=== PATIENT | male | born 1935 | race Caucasian/White ===

== ENCOUNTER 2019-11-10 12:22 | Emergency (ER) | payer MEDICARE, OTHER, SELFPAY ==
[2019-11-10 12:25] VITALS: BP 179/71; PULSE 73; RESP 18; TEMP 36.7; O2SAT 98; BMI 19.3
--- NOTE | 2019-11-10 12:25 | ED_ITS ---
Entered by Hollie Tolbert, acting as scribe for HPI - Chest Pain General: Chief Complaint: Chest Pain Stated Complaint: cp Time Seen by Provider: 11/10/19 12:32 Source: patient and family Mode of arrival: ambulatory Limitations: no limitations History of Present Illness: HPI narrative: 84 yo male presents with chest pain. pt states this started last night. pt states while and after eating this was worsened. pt states he has had the same pains in the pt. pain is resloved in the ED. pt denies any other symptoms at this time. MD complaint: chest pain Onset (ago): day(s) (last night) Timing of current episode: daily and now resolved Prior episodes: Yes Onset: during exertion and after eating Pain radiation: none Severity: mild Quality: heaviness Relieving factors: nothing Exacerbating factors: exertion and eating Associated symptoms: Reports no associated symptoms; Deny abdominal pain, dyspnea, fever(s), nausea, palpitations, syncope or vomiting Treatment prior to arrival: none Review of Systems Const: Denies: fever, chills, body aches, fatigue, malaise or night sweats Eyes: Denies: change in vision or blurry vision ENMT: Denies: throat pain, oral sores/lesions, dental pain, nasal discharge or nasal congestion Card: Denies: palpitations, irregular heart rhythm, edema, syncope, shortness of breath on exertion, shortness of breath when lying down or leg pain with exertion Resp: Denies: shortness of breath, productive cough, non-productive cough or wheezing GI: Denies: abdominal pain, nausea, vomiting, vomiting blood, coffee grounds in vomit, difficulty swallowing, heartburn/indigestion, diarrhea, constipation, cramping, blood in stool or black tarry stool : Denies: flank pain, difficulty urinating, painful urination, urinary frequency, urinary urgency, urinary incontinence or blood in urine Musc: Denies: neck pain, back pain, extremity pain, extremity swelling, joint pain or joint swelling Skin/Breast: Denies: rash, itching or redness Neuro: Denies: headache, numbness in extremities, weakness in extremities, changes in sensation, lack of coordination, difficulty walking, frequent falls, dizziness, vertigo or confusion Psych: Denies: anxiety, depression, loss of interest, visual hallucinations, auditory hallucinations, suicidal ideation or homicidal ideation Endo: Denies: excessive urination, excessive thirst, tired all the time or cold intolerance Kalin/Lymph: Denies: easy bruising, easy bleeding, petechiae, enlarged lymph nodes or tender lymph nodes PFSH ED PFSH: Statuses (acute, chronic, etc) shown below reflect problem list status as previously entered and may not be historically accurate Social History Smoking and tobacco status: never smoked Physical Exam Const: COMMON NORMALS: average body habitus, oriented x3 and alert GENERAL APPEARANCE: cooperative, comfortable, well kempt and well developed NUTRITIONAL APPEARANCE: obese ORIENTATION/CONSCIOUSNESS: Yes awake, Yes oriented to person and Yes oriented to place HENMT: COMMON NORMALS: normocephalic, head/scalp atraumatic, EAC's normal, TM's normal bilaterally, external nose normal, moist oral mucous membranes and oropharynx normal HEAD & SCALP: normocephalic and atraumatic NOSE: external nose normal EXTERNAL AUDITORY CANAL: EAC's normal TYMPANIC MEMBRANE: TM's normal bilaterally MOUTH: oral and palatal mucosa normal, lip normal and tongue normal THROAT: posterior oropharynx normal and tonsils normal Eye: COMMON NORMALS: PERRL, EOMs intact bilaterally, conjunctivae normal and no scleral icterus CONJUNCTIVA: Yes conjunctivae normal PUPIL: Yes PERRL Neck/C-Spine: COMMON NORMALS: full ROM, no lymphadenopathy, supple, no meningeal signs and thyroid normal THYROID: thyroid normal and asymmetrical Lymph: LYMPHATIC: no lymphadenopathy noted Resp: COMMON NORMALS: normal respiratory effort, no retractions, no use of accessory muscles and clear to auscultation bilaterally AUSCULTATION: clear to auscultation bilaterally Cardio: COMMON NORMALS: regular rate and regular rhythm RATE: regular rate RHYTHM: regular rhythm HEART SOUNDS: no murmurs GI: COMMON NORMALS: normal to inspection, nondistended, normoactive bowel sounds, soft to palpation and no hepatosplenomegaly PALPATION: Yes soft and Yes no hepatosplenomegaly : COMMON NORMALS: Yes no CVA tenderness BLADDER/KIDNEY EXAM: Yes no CVA tenderness Back/Pelvis: COMMON NORMALS: no CVA tenderness LUMBAR SPINE/LOWER BACK: Yes normal to inspection Extremity: COMMON NORMALS: no clubbing, cyanosis or edema, no calf tenderness and no pedal edema Neuro: COMMON NORMALS: oriented x3 SENSORIUM/ORIENTATION: Yes alert, Yes oriented to person and Yes oriented to place MENINGEAL SIGNS: Yes no meningeal signs Psych: APPEARANCE: Yes well kempt Skin: COMMON NORMALS: no rashes or lesions noted and skin turgor normal GENERAL SKIN EXAM: no rashes or lesions noted and turgor normal Course ED course: Patient asymptomatic he like to go home. He is a heart score of 2. Discharge home with sublingual nitro set him up for an outpatient stress test if worsens return. Vital Signs: Vital signs: Vital Signs Temperature 98.1 F 11/10/19 12:25 Pulse Rate 61 11/10/19 16:00 Respiratory Rate 17 11/10/19 16:00 Blood Pressure 131/74 11/10/19 16:00 Pulse Oximetry 94 11/10/19 16:00 MDM - Chest Pain Lab Data: Labs: Lab Results 11/10/19 11/10/19 11/10/19 Range/Units 12:36 12:36 12:36 WBC 6.6 (4.0-10.0) 10^3/ uL RBC 4.29 (4.1-5.3) 10^6/u L Hgb 13.0 (11.7-16.6) g/dL Hct 40.0 L (42.0-52.0) % MCV 93.2 (80-94) fL MCH 30.3 (28.0-34.0) pg MCHC 32.5 (30.0-36.0) g/dL RDW 12.3 (12.1-15.1) % Plt Count 240 (130-400) 10^3/c mm MPV 10.5 H (7.4-10.4) fL Neut % (Auto) 62.2 % Lymph % (Auto) 26.2 % Maury % (Auto) 6.1 % Eos % (Auto) 4.7 % Baso % (Auto) 0.6 % Neut # (Auto) 4.1 (1.8-7.7) 10^3/u L Lymph # (Auto) 1.7 (0.8-4.8) 10^3/u L Maury # (Auto) 0.4 (0.2-0.9) 10^3/u L Eos # (Auto) 0.3 (0.0-0.8) 10^3/u L Baso # (Auto) 0.0 (0.0-0.1) 10^3/u L Nucleated RBC % (a uto) 0 % Nucleated RBCs # 0.0 /100WBC PT 13.10 (10.5-13.3) SECO NDS INR 0.96 (0.8-1.2) APTT 30.7 (23.9-36.7) SECO NDS D-Dimer <= 0.27 (0-0.59) ug/mIFE U Sodium 137 (136-145) mmol/L Potassium 4.2 (3.5-5.1) mmol/L Chloride 101 (98-107) mmol/L Carbon Dioxide 25 (22-29) mmol/L Anion Gap 15.2 (5-19) BUN 22 (8-23) mg/dL Creatinine 1.2 (0.7-1.2) mg/dL Glucose 245 H (74-106) mg/dL Calcium 9.5 (8.8-10.2) mg/Dl Total Bilirubin 0.3 (0.15-1.2) mg/dL AST 27 (0-40) U/L ALT 28 (0-41) U/L Alkaline Phosphata se 108 (40-130) IU/L Troponin T Baselin e (0-15) ng/mL Troponin T 120 Min shinnecock (0-15) ng/mL Delta Troponin T (0-10) ABS# Total Protein 6.9 (6.6-8.7) g/dL Albumin 4.3 (3.5-5.2) g/dL Globulin 2.6 (1.3-4.6) g/dL 11/10/19 11/10/19 Range/Units 12:36 14:50 WBC (4.0-10.0) 10^3/ uL RBC (4.1-5.3) 10^6/u L Hgb (11.7-16.6) g/dL Hct (42.0-52.0) % MCV (80-94) fL MCH (28.0-34.0) pg MCHC (30.0-36.0) g/dL RDW (12.1-15.1) % Plt Count (130-400) 10^3/c mm MPV (7.4-10.4) fL Neut % (Auto) % Lymph % (Auto) % Maury % (Auto) % Eos % (Auto) % Baso % (Auto) % Neut # (Auto) (1.8-7.7) 10^3/u L Lymph # (Auto) (0.8-4.8) 10^3/u L Maury # (Auto) (0.2-0.9) 10^3/u L Eos # (Auto) (0.0-0.8) 10^3/u L Baso # (Auto) (0.0-0.1) 10^3/u L Nucleated RBC % (a uto) % Nucleated RBCs # /100WBC PT (10.5-13.3) SECO NDS INR (0.8-1.2) APTT (23.9-36.7) SECO NDS D-Dimer (0-0.59) ug/mIFE U Sodium (136-145) mmol/L Potassium (3.5-5.1) mmol/L Chloride (98-107) mmol/L Carbon Dioxide (22-29) mmol/L Anion Gap (5-19) BUN (8-23) mg/dL Creatinine (0.7-1.2) mg/dL Glucose (74-106) mg/dL Calcium (8.8-10.2) mg/Dl Total Bilirubin (0.15-1.2) mg/dL AST (0-40) U/L ALT (0-41) U/L Alkaline Phosphata se (40-130) IU/L Troponin T Baselin e 17 H (0-15) ng/mL Troponin T 120 Min shinnecock 15.59 H (0-15) ng/mL Delta Troponin T -1.41 L (0-10) ABS# Total Protein (6.6-8.7) g/dL Albumin (3.5-5.2) g/dL Globulin (1.3-4.6) g/dL Imaging Data^: CXR: Radiologist's impression: [address] [address] XRay Report Signed Patient: Omar Ritter Taco #: [id number] : 1935Acct#:[id number] Age/Sex: 84 / MADM Date: 11/10/19 Loc: ERRoom/Bed: Attending Dr: Ordering Provider/Ordering MD: Miles Spear DO Date of Service: 11/10/19 Procedure(s): XR chest 1V portable [id number] Accession Number(s): [id number] Report Number: [id number] WS: [id number] Portable AP upright chest, 11/10/2019 Clinical Data: chest pain Comparison: PA and lateral chest, 12/13/2014 Findings: No nodules, masses or effusions are seen. The heart is normal. The pulmonary vascularity is not increased. No pneumonia or pneumothorax is seen. The aortic arch and descending aorta are minimally tortuous Surgical clips in the upper abdomen. Monitor leads are on the right upper abdomen and left chest. XR/XR chest 1V portable [id number] Impression: Atherosclerosis. Dictated By:Harriet Peraza MD Signed By:Harriet Peraza MDSigned Date/Time:11/10/19 144 DD/ 144 Discharge Plan Discharge Patient Disposition: Home, Self-Care Clinical Impression: Atypical chest pain Condition: Stable Prescriptions: New nitroglycerin 0.4 mg tablet, sublingual 0.4 mg SUBLINGUAL Q5M PRN (Reason: chest pain) Qty: 30 RF: 0 aspirin 81 mg tablet,chewable 81 mg PO DAILY Qty: 30 RF: 0 Referrals: Roberto Solano MD [Family Provider] - Discharge Diet: Usual diet Discharge Activity: Limit activity as instructed Activity Restrictions/Additional Instructions: Avoid strenuous activity. Start meds as above. Case management will call to set up a stress test. If symptoms recur return to the emergency room. Discharge Date/Time: 11/10/19 15:57 Coding Level of Care Code ED Juvenile Officer for Chg Fwd Exam Problem Focused The documentation recorded by the Tomasz hobbs Bridget Annette, accurately reflects the service I personally performed and the decisions made by Beatris dominguez Curtis L, DO Nov 10, 2019 12:22
--- NOTE | 2019-11-10 12:39 | ECG_ITS ---
Measurements Intervals [place] Rate: 65 P: 74 MS: 168 QRS: 20 QRSD: 102 T: 75 QT: 384 QTc: 401 SINUS RHYTHM WITH SINUS ARRHYTHMIA NONSPECIFIC ST & T-WAVE ABNORMALITY No previous ECG available for comparison Electronically Signed On 11-11-2019 11:24:20 ROULETTE DEALER by Maximo Silver M.D. [id number]
[2019-11-10 12:41] VITALS: BP 179/71; PULSE 71; RESP 16; O2SAT 98
[2019-11-10 12:47] LABS: Basophils % 0.6 %; Eosinophils # 0.3 10^3/uL (0.0-0.8); Eosinophils % 4.7 %; Lymphocytes # 1.7 10^3/uL (0.8-4.8); Lymphocytes % 26.2 %; Mean Corpuscular HGB Conc 32.5 g/dL (30.0-36.0); Mean Corpuscular Hemoglobin 30.3 pg (28.0-34.0); Mean Corpuscular Volume 93.2 fL (80-94); Mean Platelet Volume 10.5 fL (7.4-10.4); Monocytes # 0.4 10^3/uL (0.2-0.9); Monocytes % 6.1 %; Neutrophils # 4.1 10^3/uL (1.8-7.7); Neutrophils % 62.2 %; Nucleated Red Blood Cells % 0 %; Platelet Count 240 10^3/cmm (130-400); Red Blood Count 4.29 10^6/uL (4.1-5.3); Red Cell Distribution Width 12.3 % (12.1-15.1); White Blood Count 6.6 10^3/uL (4.0-10.0)
[2019-11-10 12:50] LABS: INR 0.96 (0.8-1.2); Partial Thromboplastin Time 30.7 SECONDS (23.9-36.7)
[2019-11-10 12:53] LABS: D Dimer <= 0.27 ug/mIFEU (0-0.59)
[2019-11-10 12:57] LABS: Alanine Aminotransferase 28 U/L (0-41); Albumin Level 4.3 g/dL (3.5-5.2); Alkaline Phosphatase 108 IU/L (40-130); Anion Gap 15.2 (5-19); Aspartate Amino Transferase 27 U/L (0-40); Blood Urea Nitrogen 22 mg/dL (8-23); Calcium 9.5 mg/Dl (8.8-10.2); Carbon Dioxide 25 mmol/L (22-29); Chloride 101 mmol/L (98-107); Globulin 2.6 g/dL (1.3-4.6); Glucose 245 mg/dL (74-106); Potassium 4.2 mmol/L (3.5-5.1); Sodium 137 mmol/L (136-145); Total Bilirubin 0.3 mg/dL (0.15-1.2); Total Protein 6.9 g/dL (6.6-8.7)
[2019-11-10 13:00] LABS: Troponin(5th) Baseline 17 ng/mL (0-15)
[2019-11-10 13:32] VITALS: PULSE 66; RESP 16; O2SAT 97
[2019-11-10 13:59] VITALS: BP 145/80; PULSE 63; RESP 16; O2SAT 97
--- NOTE | 2019-11-10 14:26 | XR_ITS ---
WS: [id number] Portable AP upright chest, 11/10/2019 Clinical Data: chest pain Comparison: PA and lateral chest, 12/13/2014 Findings: No nodules, masses or effusions are seen. The heart is normal. The pulmonary vascularity is not increased. No pneumonia or pneumothorax is seen. The aortic arch and descending aorta are minima lly tortuous Surgical clips in the upper abdomen. Monitor leads are on the right upper abdomen and le ft chest. XR/XR chest 1V portable [id number] Impression: Atherosclerosis.
--- NOTE | 2019-11-10 14:39 | ECG_ITS ---
Measurements Intervals [place] Rate: 63 P: 71 IN: 188 QRS: 56 QRSD: 92 T: 68 QT: 391 QTc: 402 SINUS RHYTHM WITH SINUS ARRHYTHMIA SEPTAL MYOCARDIAL INFARCTION , PROBABLY OLD [40+ ms Q WAVE IN V1/V2] No previous ECG available for comparison Electronically Signed On 11-11-2019 11:30:32 SAWING AND ASSEMBLY SUPERVISOR by Maximo Silver M.D. [id number]
--- NOTE | 2019-11-10 14:39 | PC.NURSE ---
Xray in room
[2019-11-10 14:46] VITALS: BP 127/78; PULSE 66; RESP 16; O2SAT 95
[2019-11-10 15:14] LABS: Troponin 5 2HR 15.59 ng/mL (0-15)
[2019-11-10 15:21] LABS: Troponin 5 2HR Delta -1.41 ABS# (0-10)
[2019-11-10 16:00] VITALS: BP 131/74; PULSE 61; RESP 17; O2SAT 94
--- NOTE | 2019-11-10 16:06 | DCPLANNER ---
grounds maintenance manager was asked to schedule a outpatient stress test for patient. grounds maintenance manager spoke with patient and confirmed that patient wanted the stress test ordered and confirmed that he sees Prerna at [facility]. grounds maintenance manager faxed order to centralized scheduling, will call for appointment information.
--- NOTE | 2019-11-10 18:39 | ECG_ITS ---
Measurements Intervals [place] Rate: 93 P: 51 [place]: 166 QRS: -16 QRSD: 88 T: 68 QT: 341 QTc: 426 SINUS RHYTHM POSSIBLE LEFT ATRIAL ENLARGEMENT [-0.1mV P WAVE IN V1/V2] POSSIBLE LEFT VENTRICULAR HYPERTROPHY [VOLTAGE CRITERIA PLUS LAE OR QRS WIDENING] NONSPECIFIC T-WAVE ABNORMALITY No previous ECG available for comparison [email or web address]
--- NOTE | 2019-11-13 16:26 | DCPLANNER ---
manager of transportation had message to schedule an outpatient stress test for patient. manager of transportation called patient to confirm that patient wanted to have test completed and to confirm who patient sees for primary care. Patient stated that he sees Enoch Singh at [facility], stated that he is going to see him on Wednesday, and if he feels patient needs to have stress test, then patient will have primary care order the test.
--- NOTE | 2019-11-23 12:48 | DCPLANNER ---
regional retail sales manager called centralized scheduling to confirm if a stress test had been scheduled for patient. regional retail sales manager spoke with Arlyn, was told that they could not reach patient to schedule the test. regional retail sales manager called patient, left a voicemail for patient to call centralized scheduling to schedule that test.
== END 2019-11-10 15:57 | disposition home or self-care (01) ==
PROVIDERS: Emergency Provider Family Medicine; Family Provider Family Medicine
DX: R07.89 Other chest pain (principal)
CPT/HCPCS: 71045; 80053; 84484; 85025; 85378; 85610; 85730; 93005; 99282

== ENCOUNTER 2020-12-25 10:43 | Outpatient (CLI) | payer MEDICARE, OTHER, SELFPAY ==
--- NOTE | 2020-12-25 10:50 | US_ITS ---
WS: [id number] RENAL ULTRASOUND HISTORY: STAGE 3 CHRONIC KIDNEY DZ COMPARISON: 08/02/2013 TECHNIQUE: 2-D and color Doppler imaging of the kidney submitted. Right kidney: 11.0 cm x 3.9 cm x 5.5 cm. Normal size kidney with normal echogenicity. No hydronephrosis. Solid exophytic mass with increased v ascularity from the lower pole measures 3.2 x 3.1 x 2.3 cm. There is an additional area of soft tissu e thickening which is isoechoic to the normal renal parenchyma in the mid kidney measuring 3.9 x 3.2 x 2.2 cm which may be prominent medullary cortex. Left kidney: Surgically removed. No mass in the renal bed. Aorta: Normal. Urinary Bladder: Nondistended. US/US renal BI* [id number] IMPRESSION: 1. Solid mass with increased vascularity from the inferior pole measures 3.2 x 3.1 x 2.3 cm. 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 2. There is an area of additional area of soft tissue thickening in the mid ki dney which may be an additional mass or normal prominent medullary cortex. 3. Prior LEFT nephrectomy. 4. Recommend follow-up CT abdomen and pelvis with renal mass protocol.
== END 2020-12-25 10:44 | disposition home or self-care (01) ==
LOC: US 10:44
PROVIDERS: PCP Nurse Practitioner Family; Visit Provider Internal Medicine Nephrology
DX: N18.32 Chronic kidney disease, stage 3b (principal); N28.89 Other specified disorders of kidney and ureter; Z90.5 Acquired absence of kidney
CPT/HCPCS: 76770

== ENCOUNTER 2022-04-07 14:02 | Emergency (ER) | payer MEDICARE, SELFPAY ==
[2022-04-07 14:23] VITALS: BP 102/69; PULSE 70; RESP 18; TEMP 36.6; O2SAT 96; BMI 17.2
--- NOTE | 2022-04-07 14:36 | XRR_ITS ---
PROCEDURE INFORMATION: Exam: XR Left Shoulder Exam date and time: 04/07/2022 2:45 PM Age: 87 years old Clinical indication: Injury or trauma; Fall; Blunt trauma (contusions or hematomas); Shoulder; Left TECHNIQUE: Imaging protocol: XR Left shoulder. Views: 2 or more views. COMPARISON: CR XR chest 1V portable [id number] 11/10/2019 2:34 PM FINDINGS: Bones/joints: There is an acute comminuted fracture of the proximal left humeral diaphysis, just below the humeral neck with slight displacement and angulation. No dislocation. Probable mild osteopenia. Minimal chronic AC joint hypertrophy. No obvious destructive osseous lesions. Soft tissues: Normal. XR/XR shoulder LT min 2V* [id number] IMPRESSION: Proximal humeral fracture as described.
--- NOTE | 2022-04-07 14:40 | XRR_ITS ---
PROCEDURE INFORMATION: Exam: XR Left Wrist Exam date and time: 04/07/2022 2:45 PM Age: 87 years old Clinical indication: Injury or trauma; Fall; Blunt trauma (contusions or hematomas); Wrist; Left; Additional info: Pain TECHNIQUE: Imaging protocol: XR Left wrist. Views: 1 or 2 views. COMPARISON: No relevant prior studies available. FINDINGS: Bones/joints: Severe osteopenia. Moderate radiocarpal joint space narrowing. No obvious acute fracture or dislocation. No bony erosions. Soft tissues: Normal. Other findings: Four views submitted. XR/XR wrist LT w scaphoid [id number] IMPRESSION: No acute findings. If there is a clinical concern for scaphoid fracture or other occult in osseous injury, followup/additional assessment may also be considered.
[2022-04-07 15:06] VITALS: RESP 18; O2SAT 99
[2022-04-07] MEDS: morphine 4 mg/mL SDV 1 mL IM ×2 (15:06→16:30)
--- NOTE | 2022-04-07 15:39 | XRR_ITS ---
PROCEDURE INFORMATION: Exam: XR Left Knee Exam date and time: 04/07/2022 3:40 PM Age: 87 years old Clinical indication: Pain and injury or trauma; Fall; Blunt trauma; Knee; Bilateral TECHNIQUE: Imaging protocol: XR Left knee. Views: 3 views. COMPARISON: No relevant prior studies available. FINDINGS: Bones/joints: No fracture dislocation or joint effusion. Tiny osteophyte at the proximal tibia fibular joint. Soft tissues: Normal. Other findings: Three nonweightbearing views submitted. XR/XR knee LT 3V* [id number] IMPRESSION: No acute findings.
--- NOTE | 2022-04-07 15:39 | XRR_ITS ---
PROCEDURE INFORMATION: Exam: XR Right Knee Exam date and time: 04/07/2022 3:40 PM Age: 87 years old Clinical indication: Injury or trauma; Fall; Blunt trauma; Knee; Right; Additional info: Pain TECHNIQUE: Imaging protocol: XR Right knee. Views: 3 views. COMPARISON: No relevant prior studies available. FINDINGS: Bones/joints: No fracture dislocation or joint effusion. Soft tissues: Normal. Other findings: Three nonweightbearing views submitted. XR/XR knee RT 3V* [id number] IMPRESSION: No acute findings.
[2022-04-07 16:30] VITALS: RESP 18; O2SAT 98
--- NOTE | 2022-04-07 16:51 | ED_ITS ---
HPI - Fall General: Chief Complaint: Fall Stated Complaint: Fell Time Seen by Provider: 04/07/22 14:36 Source: patient Mode of arrival: ambulatory Limitations: no limitations History of Present Illness: 87-year-old male presents emergency room by private vehicle complaining of left shoulder pain. Patient stumbled on a parking block at a local store and fell on the left arm and shoulder. He has obvious deformity of the left proximal humerus with severe pain. He denies striking his head no loss of consciousness. Denies any other injury. MD complaint: fall Onset (ago): minute(s) Fall from: standing Fall witnessed: yes, by family Place fall occurred: street Loss of consciousness: None Prolonged down time: no Symptoms prior to fall: none Context: tripped/slipped Location of injury: other (Left wrist) Location of injury - extremities: Left: shoulder and Bilateral: knee Associated symptoms-after fall: Denies abdominal pain, chest pain, confusion, difficulty walking, headache(s), hematuria, lightheadedness, neck pain, numbness, short of breath, vertigo or weakness Review of Systems Const: Denies: fever(s), chills, body aches, change in appetite, fatigue or malaise ENMT: Denies: throat pain, ear or mastoid pain, nasal discharge or nasal congestion Card: Denies: chest pain or lightheadedness Resp: Denies: dyspnea, productive cough or non-productive cough GI: Denies: abdominal pain : Denies: hematuria Musc: Denies: neck pain Skin/Breast: Denies: rash or pruritus Neuro: Denies: headache(s), difficulty walking, vertigo or confusion [facility] ED PFSH: Medical History (Updated 04/07/22 @ 16:53 by Miles Spear DO) Diabetes mellitus Prostate cancer Social History Smoking and tobacco status: never smoked Physical Exam Const: COMMON NORMALS: no acute distress GENERAL APPEARANCE: cooperative and comfortable ORIENTATION/CONSCIOUSNESS: Yes awake, Yes oriented to person, Yes oriented to place and Yes oriented to time HENMT: COMMON NORMALS: normocephalic, atraumatic, hearing grossly normal bilaterally, external ears normal, EAC's normal, TM's normal bilaterally, Normal nasal mucous membranes and turbinates present, moist oral mucous membranes and oropharynx normal HEAD & SCALP: normocephalic and atraumatic NOSE: Normal nasal mucous membranes and turbinates present EXTERNAL EAR: Yes external ears normal EXTERNAL AUDITORY CANAL: EAC's normal TYMPANIC MEMBRANE: TM's normal bilaterally Neck/C-Spine: COMMON NORMALS: full ROM, no lymphadenopathy, supple and no JVD Resp: COMMON NORMALS: normal respiratory effort, No retractions, No use of accessory muscles and clear to auscultation bilaterally AUSCULTATION: clear to auscultation bilaterally Cardio: COMMON NORMALS: no JVD, regular rate, regular rhythm and No murmurs present (Cardio) RATE: regular rate RHYTHM: regular rhythm GI: COMMON NORMALS: Soft to palpation and No hepatosplenomegaly present AUSCULTATION: Yes normoactive bowel sounds PALPATION: Yes Soft to palpation, No Tenderness to palpation present (GI), No Guarding due to palpation present (GI) and Yes No hepatosplenomegaly present Extremity: COMMON NORMALS: no calf tenderness and no pedal edema OTHER: Obvious deformity of the left proximal humerus abrasions bilaterally to the knees Neuro: SENSORIUM/ORIENTATION: Yes oriented to person, Yes oriented to place and Yes oriented to time Skin: COMMON NORMALS: no rashes or lesions noted GENERAL SKIN EXAM: no rashes or lesions noted Course Vital Signs: Vital signs: Vital Signs Temperature 97.8 F 04/07/22 14:23 Pulse Rate 70 04/07/22 14:23 Respiratory Rate 18 04/07/22 16:30 Blood Pressure 102/69 04/07/22 14:23 Pulse Oximetry 98 04/07/22 16:30 MDM - Fall Medical Decision Making Obvious deformity the left proximal humerus x-ray confirms a comminuted minimally displaced fracture of the proximal third of the humerus. Discussed with Dr. Seay at this point she recommends sling the arm none use of the left arm pain medications as needed and follow-up in the office. Any intervention on this may need to be delayed to allow for healing and see how much improvement is needed to be made. Discussed this with the patient we will get him set up for outpatient Ortho follow-up return if has problems. Medical Records I reviewed the patient's medical records. Lab Data I reviewed the patient's lab results. Radiology Impressions Shoulder X-Ray 04/07/22 14:36 IMPRESSION: Proximal humeral fracture as described. Wrist X-Ray 04/07/22 14:40 IMPRESSION: No acute findings. If there is a clinical concern for scaphoid fracture or other occult in osseous injury, followup/additional assessment may also be considered. Knee X-Ray 04/07/22 15:39 IMPRESSION: No acute findings. Discharge Plan Discharge Patient Disposition: Home Clinical Impression: Fracture, humerus Condition: Stable Prescriptions: New hydrocodone-acetaminophen 5-325 mg tablet 1 tab PO Q6H PRN (Reason: pain) Qty: 25 0RF No Action multivitamin Tablet 1 tab PO DAILY 0RF metformin 500 mg Tablet 500 mg PO DAILY 0RF brimonidine 0.2 % Drops 1 drp OPHTHALMIC (EYE) BID 0RF Rx Instructions: both eyes pravastatin 20 mg Tablet 20 mg PO DAILY 0RF PreserVision AREDS-2 250-90-40-1 mg Capsule 1 tab PO BID 0RF Discharge Orders: Discharge ED (Routine); Ordered 04/07/22 Ordered By: Miles Spear Referrals: Enoch Singh NP [Primary Care Provider] - Discharge Diet: Usual diet Discharge Activity: Resume usual activity Activity Restrictions/Additional Instructions: Case management Coding Level of Care Code ED Director Learning Services for Fadumo Brown
--- NOTE | 2022-04-08 10:35 | DCPLANNER ---
Addendum entered by Hanh Broderick 04/09/22 14:12: Patient had a follow up appointment scheduled for 04.09.[address] Dukes at ortho - patient did attend appointment. Original Note: health information managers had message to schedule a follow up appointment for patient with ortho. health information managers sent patients information to the front office staff at ortho. Patients information will be printed and reviewed. Clinic will call patient with appointment information.
== END 2022-04-07 16:32 | disposition home or self-care (01) ==
PROVIDERS: Emergency Provider Family Medicine; PCP Nurse Practitioner Family
DX: S42.352A Displaced comminuted fracture of shaft of humerus, left arm, initial encounter for closed fracture (principal); W01.198A Fall on same level from slipping, tripping and stumbling with subsequent striking against other object, initial encounter
CPT/HCPCS: 73030; 73110; 73562; 96372; 99283; J2270

== ENCOUNTER → 2022-04-09 11:00 | Outpatient (BNVA) | payer MEDICARE, OTHER, SELFPAY | PROVIDERS: PCP Nurse Practitioner Family; Referring Provider Family Medicine; Visit Provider Specialist | DX: S42.362A Displaced segmental fracture of shaft of humerus, left arm, initial encounter for closed fracture (principal); W18.09XA Striking against other object with subsequent fall, initial encounter | CPT/HCPCS: 24530; 73030; 99204 ==

== ENCOUNTER 2022-04-09 14:49 | Outpatient (CLI) | payer MEDICARE, OTHER, SELFPAY | END 2022-04-09 14:50 | disposition home or self-care (01) | LOC: SPT 15:08 | PROVIDERS: PCP Nurse Practitioner Family; Visit Provider Specialist | DX: Z46.89 Encounter for fitting and adjustment of other specified devices (principal); S42.302D Unspecified fracture of shaft of humerus, left arm, subsequent encounter for fracture with routine healing; X58.XXXD Exposure to other specified factors, subsequent encounter | CPT/HCPCS: 97760; 99204; L3980 ==

== ENCOUNTER 2022-04-20 16:57 | Emergency (ER) | payer MEDICARE, SELFPAY ==
[2022-04-20 17:08] VITALS: BP 174/81; PULSE 69; RESP 12; TEMP 37.2; O2SAT 97; BMI 17.2
--- NOTE | 2022-04-20 17:22 | ED_ITS ---
HPI - Extremity Problem General: Chief complaint: Extremity Injury, Upper Stated complaint: Left Shoulder injury, arm swollen Time Seen by Provider: 04/20/22 17:21 History of Present Illness: 87-year-old male patient comes in today for concerns of increased swelling to the left arm. Patient fractured his arm on the 14th of this month. [facility] had seen the patient and they were concerned for cellulitis. Patient was recommended to be evaluated at the clinic at [facility]. [facility] wanted him to have an ultrasound and referred him to the emergency department. No fever has been reported. Patient does seem tired this afternoon. Associated symptoms: Deny chest pain or fever(s) Review of Systems General: Reports: 10 or more systems reviewed and unremarkable except in HPI and below Const: Denies: fever(s) Card: Denies: chest pain Resp: Denies: dyspnea GI: Denies: nausea or vomiting Musc: Reports: extremity pain and extremity swelling Skin/Breast: Reports: skin swelling Neuro: Denies: headache(s) PFS ED PFSH: Medical History Diabetes mellitus Prostate cancer Social History Smoking and tobacco status: never smoked Physical Exam Const: COMMON NORMALS: patient oriented x3 HENMT: HEAD & SCALP: normal to inspection Neck/C-Spine: COMMON NORMALS: full ROM Resp: COMMON NORMALS: normal respiratory effort Cardio: COMMON NORMALS: regular rate RATE: regular rate Extremity: LEFT UPPER EXTREMITY: Yes lower arm (Increased swelling from elbow to fingertips.) Left lower arm: Yes inspection, Yes palpation and Yes neurovascular exam Neuro: COMMON NORMALS: patient oriented x3 Skin: COMMON NORMALS: no rashes or lesions noted GENERAL SKIN EXAM: no rashes or lesions noted Course Vital Signs: Vital signs: Vital Signs Temperature 98.9 F 04/20/22 17:08 Pulse Rate 69 04/20/22 17:08 Respiratory Rate 12 04/20/22 17:08 Blood Pressure 174/81 04/20/22 17:08 Pulse Oximetry 97 04/20/22 17:08 MDM - Extremity (Nontraumatic) Medical Decision Making 87-year-old male patient comes in today for swelling to the left upper e xtremity. Patient does have a fracture to the humerus that occurred on the . Patient at this time is in a coaptation splint and arm immobilizer. Family reports increased swelling over the last 2 days. Patient denies any fever, nausea vomiting, or chest discomfort. Differential diagnosis includes DVT, cellulitis, peripheral edema. Ultrasound for DVT was negative. CBC showed a hemoglobin of 9.5 and hematocrit 28. White blood cell count was normal. No signs of cellulitis was noted. I believe patient basically has dependent edema due to nonuse of the extremity and the recent fracture. We did apply a compression stocking from the hand up to the upper arm for trial to see if that would help with the swelling control. Patient is going to have physical therapy which can further monitor her may be a cyst with improvement of the fluid. Recommended monitoring for fever, nausea vomiting, or new concerns. Lab Data : 04/20/22 18:09 04/20/22 18:09 Radiology Impressions Venous Duplex 04/20/22 17:22 IMPRESSION: No sonographic evidence of deep vein thrombosis. Laboratory Results WBC 6.4 10^3/uL (4.0-10.0) 04/20/22 18:09 RBC 3.07 10^6/uL (4.1-5.3) L 04/20/22 18:09 Hgb 9.5 g/dL (11.7-16.6) L 04/20/22 18:09 Hct 28.1 % (42.0-52.0) L 04/20/22 18:09 MCV 91.5 fl (80-94) 04/20/22 18:09 MCH 30.9 pg (28.0-34.0) 04/20/22 18:09 MCHC 33.8 g/dL (30.0-36.0) 04/20/22 18:09 RDW 13.2 % (12.1-15.1) 04/20/22 18:09 Plt Count 388 10^3/cmm (130-400) 04/20/22 18:09 MPV 10.2 fL (7.4-10.4) 04/20/22 18:09 Neut % (Auto) 74.3 % 04/20/22 18:09 Lymph % (Auto) 15.4 % 04/20/22 18:09 [place] % (Auto) 8.3 % 04/20/22 18:09 Eos % (Auto) 0.9 % 04/20/22 18:09 Baso % (Auto) 0.5 % 04/20/22 18:09 Neut # (Auto) 4.71 10^3/uL (1.8-7.7) 04/20/22 18:09 Lymph # (Auto) 1.0 10^3/uL (0.8-4.8) 04/20/22 18:09 [place] # (Auto) 0.5 10^3/uL (0.2-0.9) 04/20/22 18:09 Eos # (Auto) 0.1 10^3/uL (0.0-0.8) 04/20/22 18:09 Baso # (Auto) 0.0 10^3/uL (0.0-0.1) 04/20/22 18:09 Nucleated RBC % (auto) 0 % 04/20/22 18:09 Nucleated RBCs # 0.0 /100WBC 04/20/22 18:09 Discharge Plan Discharge Patient Disposition: Home Clinical Impression: Edema, peripheral Humerus fracture Qualifiers: Encounter type: initial encounter Humerus Location: proximal Fracture type: closed Fracture morphology: other fracture Laterality: left Condition: Stable Prescriptions: No Action losartan 25 mg tablet 25 mg PO BID 0RF (DME) Clam Shell Brace See Rx Instructions .Route .MEDSUPPLY Qty: 1 0RF Rx Instructions: As directed tramadol 50 mg tablet 50 mg PO Q6H PRN (Reason: pain) Qty: 30 0RF hydrocodone-acetaminophen 5-325 mg tablet 1 tab PO Q6H PRN (Reason: pain) Qty: 25 0RF multivitamin Tablet 1 tab PO DAILY 0RF metformin 500 mg Tablet 500 mg PO DAILY 0RF brimonidine 0.2 % Drops 1 drp OPHTHALMIC (EYE) BID 0RF Rx Instructions: both eyes pravastatin 20 mg Tablet 20 mg PO DAILY 0RF PreserVision AREDS-2 250-90-40-1 mg Capsule 1 tab PO BID 0RF Discharge Orders: Discharge ED (Routine); Ordered 04/20/22 Ordered By: Surinder Hernandez Referrals: Enoch Singh NP [Primary Care Provider] - Discharge Diet: Usual diet Discharge Activity: Increase activity as tolerated Patient Instructions: Dependent Edema Activity Restrictions/Additional Instructions: Use extremity as much as possible. Follow-up with occupational therapist or physical therapist for further instruction about extremity swelling. Continue with routine care as directed. Monitor for high fever greater than 100.4, nausea vomiting, chest pain or shortness of breath. Return to the ER for the symptoms. Follow-up with primary care as needed. Keep follow-up appointment with orthopedist as directed. Coding Level of Care Code ED Handbag Designer for Chg Fwd Exam Detailed
--- NOTE | 2022-04-20 17:22 | USR_ITS ---
PROCEDURE INFORMATION: Exam: US Duplex Left Upper Extremity Veins, Limited Exam date and time: 04/20/2022 5:51 PM Age: 87 years old Clinical indication: Edema, localized; Upper extremity, left; Patient HX: Lt humerus FX; Additional info: Swelling and redness, concern for dvt, history of injury TECHNIQUE: Imaging protocol: Real-time Duplex ultrasound of the Left Upper Extremity with 2-D burrows scale, color Doppler flow and spectral waveform analysis with image documentation. Limited exam focused on the left upper extremity veins. COMPARISON: CR XR shoulder LT min 2V* [id number] 04/09/2022 2:22 PM FINDINGS: Left deep veins: Internal jugular, subclavian, axillary, brachial, radial and ulnar veins patent without thrombus. Normal compressibility, augmentation response and/or Doppler waveforms. Left superficial veins: Visualized cephalic and basilic veins patent without thrombus. Soft tissues: Subcutaneous edema. US/[place] [id number] IMPRESSION: No sonographic evidence of deep vein thrombosis.
[2022-04-20 18:21] LABS: Basophils % 0.5 %; Eosinophils # 0.1 10^3/uL (0.0-0.8); Eosinophils % 0.9 %; Hematocrit 28.1 % (42.0-52.0); Hemoglobin 9.5 g/dL (11.7-16.6); Lymphocytes % 15.4 %; Mean Corpuscular HGB Conc 33.8 g/dL (30.0-36.0); Mean Corpuscular Hemoglobin 30.9 pg (28.0-34.0); Mean Corpuscular Volume 91.5 fl (80-94); Mean Platelet Volume 10.2 fL (7.4-10.4); Monocytes # 0.5 10^3/uL (0.2-0.9); Monocytes % 8.3 %; Neutrophils # 4.71 10^3/uL (1.8-7.7); Neutrophils % 74.3 %; Nucleated Red Blood Cells % 0 %; Platelet Count 388 10^3/cmm (130-400); Red Blood Count 3.07 10^6/uL (4.1-5.3); Red Cell Distribution Width 13.2 % (12.1-15.1); White Blood Count 6.4 10^3/uL (4.0-10.0)
[2022-04-20 18:43] LABS: Alanine Aminotransferase 61 U/L (0-41); Albumin Level 3.8 g/dL (3.5-5.2); Alkaline Phosphatase 131 IU/L (40-130); Anion Gap 15.5 (5-19); Aspartate Amino Transferase 38 U/L (0-40); Blood Urea Nitrogen 31 mg/dL (8-23); Calcium 9.1 mg/dL (8.5-10.5); Carbon Dioxide 25 mmol/L (22-29); Chloride 100 mmol/L (98-107); Globulin 2.7 g/dL (1.3-4.6); Glucose 227 mg/dL (65-115); Osmolality Calculated 296 mOsm/kg (285-295); Potassium 4.5 mmol/L (3.5-5.1); Sodium 136 mmol/L (136-145); Total Bilirubin 0.4 mg/dL (0.15-1.2); Total Protein 6.5 g/dL (6.6-8.7)
== END 2022-04-20 18:51 | disposition home or self-care (01) ==
PROVIDERS: Emergency Provider Nurse Practitioner Family; PCP Nurse Practitioner Family
DX: R60.0 Localized edema (principal); S42.202A Unspecified fracture of upper end of left humerus, initial encounter for closed fracture; Z79.84 Long term (current) use of oral hypoglycemic drugs; E11.9 Type 2 diabetes mellitus without complications; Z85.46 Personal history of malignant neoplasm of prostate; X58.XXXA Exposure to other specified factors, initial encounter
CPT/HCPCS: 80053; 85025; 93971; 99283

== ENCOUNTER → 2022-04-21 11:01 | Outpatient (BNVA) | payer MEDICARE, SELFPAY | PROVIDERS: PCP Nurse Practitioner Family; Visit Provider Nurse Practitioner Family | DX: S42.362A Displaced segmental fracture of shaft of humerus, left arm, initial encounter for closed fracture (principal); W01.0XXA Fall on same level from slipping, tripping and stumbling without subsequent striking against object, initial encounter; Y92.512 Supermarket, store or market as the place of occurrence of the external cause | CPT/HCPCS: 73030; 99213; 99214 ==

== ENCOUNTER → 2022-05-04 08:14 | Outpatient (BNVA) | payer MEDICARE, OTHER, SELFPAY | PROVIDERS: PCP Nurse Practitioner Family; Visit Provider Specialist | DX: S42.362D Displaced segmental fracture of shaft of humerus, left arm, subsequent encounter for fracture with routine healing (principal); X58.XXXD Exposure to other specified factors, subsequent encounter | CPT/HCPCS: 73030; 99024 ==

== ENCOUNTER → 2022-06-01 08:28 | Outpatient (BNVA) | payer MEDICARE, OTHER, SELFPAY | PROVIDERS: PCP Nurse Practitioner Family; Visit Provider Specialist | DX: S42.342D Displaced spiral fracture of shaft of humerus, left arm, subsequent encounter for fracture with routine healing (principal); X58.XXXD Exposure to other specified factors, subsequent encounter | CPT/HCPCS: 73030; 99024 ==

== ENCOUNTER → 2022-07-01 08:35 | Outpatient (BNVA) | payer MEDICARE, OTHER, SELFPAY | PROVIDERS: PCP Nurse Practitioner Family; Visit Provider Specialist | DX: S42.362D Displaced segmental fracture of shaft of humerus, left arm, subsequent encounter for fracture with routine healing (principal); X58.XXXD Exposure to other specified factors, subsequent encounter | CPT/HCPCS: 73030; 73060; 99024 ==

== ENCOUNTER → 2022-07-07 08:23 | Outpatient (BNVA) | payer MEDICARE, OTHER, SELFPAY | PROVIDERS: PCP Nurse Practitioner Family; Visit Provider Podiatrist Foot & Ankle Surgery | DX: I73.9 Peripheral vascular disease, unspecified (principal); E11.42 Type 2 diabetes mellitus with diabetic polyneuropathy; L60.3 Nail dystrophy; M21.41 Flat foot [pes planus] (acquired), right foot; M21.42 Flat foot [pes planus] (acquired), left foot; Z79.84 Long term (current) use of oral hypoglycemic drugs | CPT/HCPCS: 11721; 99203; 99204 ==

== ENCOUNTER 2022-07-20 06:00 | Outpatient (RCR) | payer MEDICARE, OTHER, SELFPAY | END 2022-07-24 23:59 | disposition home or self-care (01) | LOC: SPT 06:00 | PROVIDERS: PCP Nurse Practitioner Family; Visit Provider Specialist | DX: S42.302G Unspecified fracture of shaft of humerus, left arm, subsequent encounter for fracture with delayed healing (principal); X58.XXXD Exposure to other specified factors, subsequent encounter; M25.612 Stiffness of left shoulder, not elsewhere classified; M25.622 Stiffness of left elbow, not elsewhere classified; M25.512 Pain in left shoulder | CPT/HCPCS: 97110; 97162 ==

== ENCOUNTER 2022-07-25 06:00 | Outpatient (RCR) | payer MEDICARE, OTHER, SELFPAY | END 2022-08-24 23:59 | disposition home or self-care (01) | LOC: SPT 06:00 | PROVIDERS: PCP Nurse Practitioner Family; Visit Provider Specialist | DX: S42.302G Unspecified fracture of shaft of humerus, left arm, subsequent encounter for fracture with delayed healing (principal); X58.XXXD Exposure to other specified factors, subsequent encounter | CPT/HCPCS: 97110 ==

== ENCOUNTER → 2022-08-12 09:45 | Outpatient (BNVA) | payer MEDICARE, OTHER, SELFPAY | PROVIDERS: PCP Nurse Practitioner Family; Visit Provider Specialist | DX: S42.362D Displaced segmental fracture of shaft of humerus, left arm, subsequent encounter for fracture with routine healing (principal); X58.XXXD Exposure to other specified factors, subsequent encounter | CPT/HCPCS: 73060; 99213 ==

== ENCOUNTER 2022-08-25 06:00 | Outpatient (RCR) | payer MEDICARE, OTHER, SELFPAY | END 2022-09-23 23:59 | disposition home or self-care (01) | LOC: SPT 06:00 | PROVIDERS: PCP Nurse Practitioner Family; Visit Provider Specialist | DX: S42.302G Unspecified fracture of shaft of humerus, left arm, subsequent encounter for fracture with delayed healing (principal); X58.XXXD Exposure to other specified factors, subsequent encounter; M25.612 Stiffness of left shoulder, not elsewhere classified; M25.622 Stiffness of left elbow, not elsewhere classified; M25.512 Pain in left shoulder | CPT/HCPCS: 97110 ==

== ENCOUNTER → 2022-09-02 11:30 | Outpatient (BNVA) | payer MEDICARE, OTHER, SELFPAY | PROVIDERS: PCP Nurse Practitioner Family; Visit Provider Specialist | DX: S42.362D Displaced segmental fracture of shaft of humerus, left arm, subsequent encounter for fracture with routine healing (principal); X58.XXXD Exposure to other specified factors, subsequent encounter | CPT/HCPCS: 73060; 99213 ==

== ENCOUNTER 2022-09-24 06:00 | Outpatient (RCR) | payer MEDICARE, OTHER, SELFPAY | END 2022-09-30 15:54 | disposition home or self-care (01) | LOC: SPT 06:00 | PROVIDERS: PCP Nurse Practitioner Family; Visit Provider Specialist | DX: S42.302G Unspecified fracture of shaft of humerus, left arm, subsequent encounter for fracture with delayed healing (principal); X58.XXXD Exposure to other specified factors, subsequent encounter | CPT/HCPCS: 97110 ==

== ENCOUNTER → 2022-11-10 08:13 | Outpatient (BNVA) | payer MEDICARE, OTHER, SELFPAY | PROVIDERS: PCP Nurse Practitioner Family; Visit Provider Podiatrist Foot & Ankle Surgery | DX: E11.8 Type 2 diabetes mellitus with unspecified complications (principal); I73.9 Peripheral vascular disease, unspecified; L60.3 Nail dystrophy; E11.42 Type 2 diabetes mellitus with diabetic polyneuropathy; M21.41 Flat foot [pes planus] (acquired), right foot; M21.42 Flat foot [pes planus] (acquired), left foot; Z79.84 Long term (current) use of oral hypoglycemic drugs | CPT/HCPCS: 11721 ==

== ENCOUNTER → 2022-12-10 15:00 | Outpatient (BNVA) | payer MEDICARE, OTHER, SELFPAY | PROVIDERS: PCP Nurse Practitioner Family; Visit Provider Podiatrist Foot & Ankle Surgery | DX: M65.872 Other synovitis and tenosynovitis, left ankle and foot (principal) | CPT/HCPCS: 73610; 99213 ==

== ENCOUNTER 2023-01-19 14:08 | Outpatient (CLI) | payer MEDICARE, OTHER, SELFPAY ==
[2023-01-19 15:57] LABS: Anion Gap 13.6 (5-19); Blood Urea Nitrogen 31 mg/dL (8-23); Calcium 8.9 mg/dL (8.5-10.5); Carbon Dioxide 27 mmol/L (22-29); Chloride 104 mmol/L (98-107); Glucose 199 mg/dL (65-115); Osmolality Calculated 302 mOsm/kg (285-295); Potassium 4.6 mmol/L (3.5-5.1); Prostate Specific Antigen 0.111 ng/mL (0-4); Sodium 140 mmol/L (136-145)
== END 2023-01-19 14:09 | disposition home or self-care (01) ==
PROVIDERS: PCP Nurse Practitioner Family; Visit Provider Urology
DX: Z90.5 Acquired absence of kidney (principal); Z85.46 Personal history of malignant neoplasm of prostate; M65.872 Other synovitis and tenosynovitis, left ankle and foot; I87.2 Venous insufficiency (chronic) (peripheral)
CPT/HCPCS: 36415; 80048; 84153; 99213

== ENCOUNTER 2023-02-03 16:17 | Outpatient (CLI) | payer MEDICARE, OTHER, SELFPAY ==
--- NOTE | 2023-02-03 | CT_ITS ---
WS: [id number] CT ABDOMEN PELVIS TECHNIQUE: Noncontrast CT of the abdomen and pelvis with coronal and sagittal reformatted images. CLINICAL INFORMATION: HISTORY OF NEPHRECTOMY LEFT COMPARISON: None. DLP: 273.[address] scans at [facility] use at least one of these dose optimization techniques: automated e xposure control; mA and/or kV adjustment per patient size (includes targeted exams where dose is matc hed to clinical indication); or iterative reconstruction. FINDINGS: Lung bases are well aerated. Subsegmental atelectasis RIGHT lower lobe. Normal noncontrast liver. Nor mal noncontrast spleen. Splenic granulomas. Tiny esophageal hiatal hernia. Postoperative changes in t he upper abdomen. Surgical clips in the upper abdomen epigastric region ventral abdominal wall and ab out the greater curvature of the stomach. Associated beam hardening artifact. Prior LEFT nephrectomy. No evidence of recurrent mass or lesion in the LEFT nephrectomy bed. RIGHT ad renal gland is normal. No hydronephrosis in RIGHT kidney. Exophytic lesion lower pole RIGHT kidney boucher spicious for solid or complex mass on the recent ultrasound and measures slightly larger today. Contr ast not administered today. Recommend continued surveillance with CT or ultrasound. Prior prostatectomy. A few sigmoid diverticuli. Normal caliber abdominal aorta. No free fluid in the abdomen or pelvis. Fa t-containing RIGHT inguinal hernia. Mild lumbar curve. CT/CT abdomen pelvis wo con [id number] IMPRESSION: 1. Again seen is the RIGHT lower pole indeterminate renal lesion measuring 3.3 x 3.6 x 2.8 cm measures slightly larger compared to the prior ultrasound December 25, 2020. Contrast not administered today. This is indeterminant on this nonco ntrast study but suspicious for neoplasm on prior ultrasound. Recommend continu ed surveillance with ultrasound or CT. 2. Prior LEFT nephrectomy. 3. Surgical clips in the upper abdomen epigastric region with beam hardening a rtifact unchanged. 4. No other new findings.
== END 2023-02-03 16:18 | disposition home or self-care (01) ==
LOC: RAD 16:17
PROVIDERS: PCP Nurse Practitioner Family; Visit Provider Urology
DX: N28.9 Disorder of kidney and ureter, unspecified (principal); Z90.5 Acquired absence of kidney
CPT/HCPCS: 74176

== ENCOUNTER → 2023-03-04 11:00 | Outpatient (BNVA) | payer MEDICARE, OTHER, SELFPAY | PROVIDERS: PCP Nurse Practitioner Family; Visit Provider Dermatology | DX: L24.9 Irritant contact dermatitis, unspecified cause (principal); B07.8 Other viral warts; L29.8 Other pruritus; L85.3 Xerosis cutis; L57.0 Actinic keratosis; L82.1 Other seborrheic keratosis | CPT/HCPCS: 17000; 17003; 17110; 99214 ==

== ENCOUNTER → 2023-03-11 08:53 | Outpatient (BNVA) | payer MEDICARE, OTHER, SELFPAY | PROVIDERS: PCP Nurse Practitioner Family; Visit Provider Podiatrist Foot & Ankle Surgery | DX: M25.572 Pain in left ankle and joints of left foot (principal); M65.9 Synovitis and tenosynovitis, unspecified; I87.2 Venous insufficiency (chronic) (peripheral) | CPT/HCPCS: 99213 ==

== ENCOUNTER → 2023-03-30 13:52 | Outpatient (BNVA) | payer MEDICARE, OTHER, SELFPAY | PROVIDERS: PCP Nurse Practitioner Family; Visit Provider Nurse Practitioner Family | DX: L57.0 Actinic keratosis (principal); L23.5 Allergic contact dermatitis due to other chemical products; B07.8 Other viral warts; L57.8 Other skin changes due to chronic exposure to nonionizing radiation; Z85.828 Personal history of other malignant neoplasm of skin | CPT/HCPCS: 17000; 17003; 99214 ==

== ENCOUNTER → 2023-06-22 10:31 | Outpatient (BNVA) | payer MEDICARE, OTHER, SELFPAY | PROVIDERS: PCP Nurse Practitioner Family; Visit Provider Podiatrist Foot & Ankle Surgery | DX: E11.8 Type 2 diabetes mellitus with unspecified complications (principal); M25.572 Pain in left ankle and joints of left foot; L60.3 Nail dystrophy; E11.42 Type 2 diabetes mellitus with diabetic polyneuropathy; Z79.84 Long term (current) use of oral hypoglycemic drugs; M65.872 Other synovitis and tenosynovitis, left ankle and foot | CPT/HCPCS: 11721; 99212 ==

== ENCOUNTER → 2023-08-24 11:01 | Outpatient (BNVA) | payer MEDICARE, OTHER, SELFPAY | PROVIDERS: PCP Family Medicine; Visit Provider Nurse Practitioner Family | DX: D22.5 Melanocytic nevi of trunk (principal); L81.4 Other melanin hyperpigmentation; L82.1 Other seborrheic keratosis; D48.5 Neoplasm of uncertain behavior of skin; L57.0 Actinic keratosis | CPT/HCPCS: 11102; 17000; 99213 ==

== ENCOUNTER → 2023-09-21 09:52 | Outpatient (BNVA) | payer MEDICARE, OTHER, SELFPAY | PROVIDERS: PCP Family Medicine; Visit Provider Podiatrist Foot & Ankle Surgery | DX: L60.3 Nail dystrophy (principal); E11.42 Type 2 diabetes mellitus with diabetic polyneuropathy; Z79.84 Long term (current) use of oral hypoglycemic drugs | CPT/HCPCS: 11721 ==

== ENCOUNTER → 2023-09-22 18:11 | Outpatient (BNVA) | payer MEDICARE, OTHER, SELFPAY | PROVIDERS: PCP Family Medicine; Visit Provider Registered Nurse Neonatal Intensive Care | DX: R05.9 Cough, unspecified (principal) | CPT/HCPCS: 87400; 87426 ==

== ENCOUNTER → 2023-11-02 07:55 | Outpatient (BNVA) | payer MEDICARE, OTHER, SELFPAY | PROVIDERS: PCP Family Medicine; Visit Provider Nurse Practitioner Family | DX: D22.5 Melanocytic nevi of trunk (principal); L81.4 Other melanin hyperpigmentation; Z85.828 Personal history of other malignant neoplasm of skin; L72.0 Epidermal cyst; L82.1 Other seborrheic keratosis; L82.0 Inflamed seborrheic keratosis | CPT/HCPCS: 17000; 17110; 99213 ==

== ENCOUNTER → 2023-12-22 14:38 | Outpatient (BNVA) | payer MEDICARE, OTHER, SELFPAY | PROVIDERS: PCP Family Medicine; Visit Provider Podiatrist Foot & Ankle Surgery | DX: L60.3 Nail dystrophy (principal); E11.42 Type 2 diabetes mellitus with diabetic polyneuropathy; Z79.84 Long term (current) use of oral hypoglycemic drugs | CPT/HCPCS: 11721 ==

== ENCOUNTER → 2024-01-13 09:26 | Outpatient (BNVA) | payer MEDICARE, OTHER, SELFPAY | PROVIDERS: PCP Family Medicine; Visit Provider Nurse Practitioner Family | DX: L82.0 Inflamed seborrheic keratosis (principal); D22.5 Melanocytic nevi of trunk; L81.4 Other melanin hyperpigmentation; Z85.828 Personal history of other malignant neoplasm of skin; L72.0 Epidermal cyst; L82.1 Other seborrheic keratosis | CPT/HCPCS: 17110; 99213 ==

== ENCOUNTER 2024-01-14 13:45 | Outpatient (CLI) | payer MEDICARE, OTHER, SELFPAY ==
--- NOTE | 2024-01-14 13:55 | US_ITS ---
WS: [id number] ULTRASOUND RENAL TECHNIQUE: Ultrasound examination of both kidneys. 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 Associa haley vascularity. 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 On the prior CT 02/03/2023 this me asured approximately 3.3 x 3.6 x 2.8 cm. On the prior ultrasound in 2020 this measured 3.2 x 3.1 x 2. 3 cm. Right kidney is otherwise normal in size and appearance. Echogenicity: Normal. Cortical thickness: 1.0 cm; Normal. Hydronephrosis: None. Perinephric fluid: None. Right kidney measures: 9.4 cm x 4.1 cm x 4.0 cm. LEFT: Prior LEFT nephrectomy Normal visualized aorta. Normal bladder. IMPRESSION: 1. Prior LEFT nephrectomy. 2. Solid mass lower pole RIGHT kidney measuring 3.6 x 4.5 x 3.8 cm. Associated vascularity. Prior bi opsy reportedly performed demonstrating oncocytoma. This is increased in size slightly compared to th e prior 2 examinations described above. 3. Normal LEFT nephrectomy bed. 4. Normal bladder.
== END 2024-01-14 13:46 | disposition home or self-care (01) ==
LOC: RAD 13:46
PROVIDERS: PCP Family Medicine; Visit Provider Urology
DX: D30.00 Benign neoplasm of unspecified kidney (principal); N28.89 Other specified disorders of kidney and ureter
CPT/HCPCS: 76770

== ENCOUNTER → 2024-03-29 14:08 | Outpatient (BNVA) | payer MEDICARE, OTHER, SELFPAY | PROVIDERS: PCP Family Medicine; Visit Provider Podiatrist Foot & Ankle Surgery | DX: L60.3 Nail dystrophy (principal); E11.42 Type 2 diabetes mellitus with diabetic polyneuropathy; Z79.84 Long term (current) use of oral hypoglycemic drugs | CPT/HCPCS: 11721 ==

== ENCOUNTER → 2024-05-15 18:35 | Outpatient (BNVA) | payer MEDICARE, OTHER, SELFPAY | PROVIDERS: PCP Family Medicine; Visit Provider Registered Nurse Neonatal Intensive Care | DX: R05.9 Cough, unspecified (principal) | CPT/HCPCS: 87426 ==

== ENCOUNTER 2024-07-06 16:50 | Emergency (ER) | payer MEDICARE, OTHER, SELFPAY ==
[2024-07-06 16:55] VITALS: BP 186/77; PULSE 59; RESP 18; TEMP 36.7; O2SAT 97
[2024-07-06 17:03] VITALS: BP 200/79; PULSE 63; O2SAT 92
--- NOTE | 2024-07-06 17:09 | CTR_ITS ---
PROCEDURE INFORMATION: Exam: CT Head Without Contrast Exam date and time: 07/06/2024 5:20 PM Age: 89 years old Clinical indication: Other: Weakness TECHNIQUE: Imaging protocol: Computed tomography of the head without contrast. Radiation optimization: All CT scans at this facility use at least one of these dose optimization techniques: automated exposure control; mA and/or kV adjustment per patient size (includes targeted exams where dose is matched to clinical indication); or iterative reconstruction. COMPARISON: No relevant prior studies available. RADIATION DOSE METRICS: Total DLP (mGy-cm): 967 FINDINGS: Brain: Sequela of mild-moderate chronic microvascular ischemic changes with periventricular and deep white matter hypoattenuation. Esparza-white differentiation is otherwise maintained. No evidence of intra-axial or extra-axial hemorrhage. There are multiple calcified nodular foci in the posterior fossa, most conspicuous in the ambient cistern. No mass effect or midline shift. Basilar cisterns are patent. Cerebral ventricles: No hydrocephalus. Paranasal sinuses: The visualized paranasal sinuses are well aerated. Mastoid air cells: The visualized mastoids and middle ears are clear. Bones: Postsurgical changes of the right occipitomastoid region. Calvarium is otherwise intact. No evidence of acute fracture. Soft tissues: Left-sided phthisis bulbi. CT/CT head wo con* [id number] IMPRESSION: 1. No acute intracranial abnormality. 2. Multiple calcified nodular foci in the posterior fossa, most conspicuous in the ambient cistern. Follow-up nonemergent MRI of the brain is recommended to evaluate for posterior fossa lesions/meningiomas.
--- NOTE | 2024-07-06 17:09 | XRR_ITS ---
PROCEDURE INFORMATION: Exam: XR Chest Exam date and time: 07/06/2024 5:25 PM Age: 89 years old Clinical indication: Other: Weakness TECHNIQUE: Imaging protocol: Radiologic exam of the chest. Views: 1 view. COMPARISON: CR XR chest 1V portable [id number] 11/10/2019 2:34 PM FINDINGS: Lungs: Hyperinflated lungs. Calcified granulomas in the left upper lung. No consolidation. Pleural spaces: Unremarkable. No pleural effusion. No pneumothorax. Heart/Mediastinum: Unremarkable. No cardiomegaly. Bones/joints: Unremarkable. XR/XR chest 1V portable [id number] IMPRESSION: No acute findings.
--- NOTE | 2024-07-06 17:10 | ECG_ITS ---
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
[2024-07-06 17:12] LABS: Glucose Point of Care 137 mg/dL (70-110)
--- NOTE | 2024-07-06 17:14 | ED_ITS ---
HPI - Weakness 2 General: Chief complaint: Weakness Stated complaint: Stoke like systems Time Seen by Provider: 07/06/24 17:05 Source: patient and EMS Mode of arrival: ambulatory Limitations: no limitations History of Present Illness: 89-year-old male who states he had some right sided facial numbness right sided hand numbness at 330. He states he had felt weak as well. States his symptoms have completely resolved states he is currently back at his baseline. He is had no slurred speech denies any headache and denies any cough or fever. Associated symptoms: Denies chest pain, chills, fever(s), headache(s), nausea or vomiting Review of Systems 2 Const: Denies: fever(s), chills, body aches or change in appetite Eyes: Denies: blurry vision or eye discomfort ENMT: Denies: throat pain or dental pain Card: Denies: chest pain Resp: Denies: dyspnea GI: Denies: abdominal pain, nausea, vomiting or diarrhea Musc: Denies: neck pain or back pain Skin/Breast: Denies: rash Neuro: Reports: numbness in extremities; Denies: headache(s) PFSH ED 2 PFSH: Medical History Diabetes mellitus Prostate cancer Social History Smoking and tobacco/nicotine status: never used tobacco/nicotine Physical Exam 2 Const: COMMON NORMALS: no acute distress, patient oriented x3 and healthy appearing HENMT: COMMON NORMALS: normocephalic and atraumatic HEAD & SCALP: n ormocephalic and atraumatic Eye: COMMON NORMALS: Equal, round and reactive pupils present and EOMs intact bilaterally PUPIL: Yes Equal, round and reactive pupils present Neck/C-Spine: COMMON NORMALS: full ROM and supple Chest: COMMONS NORMALS: normal inspection of the chest and normal palpation of entire chest wall Resp: COMMON NORMALS: normal respiratory effort, No retractions, No use of accessory muscles and clear to auscultation bilaterally AUSCULTATION: clear to auscultation bilaterally Cardio: COMMON NORMALS: regular rate, regular rhythm and No murmurs present (Cardio) RATE: regular rate RHYTHM: regular rhythm GI: COMMON NORMALS: Normal to inspection, nondistended, normoactive bowel sounds present, Soft to palpation, non-tender and no masses PALPATION: Yes Soft to palpation Extremity: COMMON NORMALS: normal to inspection and full ROM Neuro: COMMON NORMALS: patient oriented x3, moves all extremities and no focal motor deficits Psych: COMMON NORMALS: mental status grossly normal, Normal thought process present and cooperative THOUGHT PROCESS: Normal thought process present Skin: COMMON NORMALS: no rashes or lesions noted and no wounds GENERAL SKIN EXAM: no rashes or lesions noted Course 2 Vital Signs: Vital signs: Vital Signs Temperature 98.0 F 07/06/24 16:55 Pulse Rate 62 07/06/24 18:38 Respiratory Rate 18 07/06/24 18:38 Blood Pressure 160/38 07/06/24 18:38 Pulse Oximetry 94 07/06/24 18:38 Oxygen Delivery Me thod Room Air 07/06/24 16:55 MDM - Weakness Medical Decision Making Patient presents with paresthesias that is resolved CT showed no signs of acute stroke or bleed he feels much improved I did offer him admission he states she feels improved would like to go home he stable for discharge she is follow-up with PCP return if worsening he understands agrees to plan. Medical Records I reviewed the patient's medical records. Lab Data I reviewed the patient's lab results. 07/06/24 17:19 07/06/24 17:19 Radiology Impressions Chest X-Ray 07/06/24 17:09 IMPRESSION: No acute findings. Head CT 07/06/24 17:09 IMPRESSION: 1. No acute intracranial abnormality. 2. Multiple calcified nodular foci in the posterior fossa, most conspicuous in the ambient cistern. Follow-up nonemergent MRI of the brain is recommended to evaluate for posterior fossa lesions/meningiomas. Laboratory Results WBC 6.43 10^3/uL (3.29-11.43) 07/06/24 17:19 RBC 4.12 10^6/uL (3.85-5.65) 07/06/24 17:19 Hgb 12.60 g/dL (11.27-16.99) 07/06/24 17:19 Hct 39.2 % (37-53) 07/06/24 17:19 MCV 95.1 fl (82-101) 07/06/24 17:19 MCH 30.6 pg (27-33) 07/06/24 17:19 MCHC 32.1 g/dL (30-55) 07/06/24 17:19 RDW 12.8 % (12.1-15.1) 07/06/24 17:19 Plt Count 218 10^3/cmm (157-399) 07/06/24 17:19 MPV 11.1 fL (7.4-10.4) H 07/06/24 17:19 Neut % (Auto) 66.7 % 07/06/24 17:19 Lymph % (Auto) 21.8 % 07/06/24 17:19 [place] % (Auto) 9.3 % 07/06/24 17:19 Eos % (Auto) 1.6 % 07/06/24 17:19 Baso % (Auto) 0.3 % 07/06/24 17:19 Neut # (Auto) 4.29 10^3/uL (1.8-7.7) 07/06/24 17:19 Lymph # (Auto) 1.4 10^3/uL (0.8-4.8) 07/06/24 17:19 [place] # (Auto) 0.6 10^3/uL (0.2-0.9) 07/06/24 17:19 Eos # (Auto) 0.1 10^3/uL (0.0-0.8) 07/06/24 17:19 Baso # (Auto) 0.0 10^3/uL (0.0-0.1) 07/06/24 17:19 Nucleated RBC % (auto) 0 % 07/06/24 17:19 Nucleated RBCs # 0.0 /100WBC 07/06/24 17:19 Sodium 143 mmol/L (136-145) 07/06/24 17:19 Potassium 4.7 mmol/L (3.5-5.1) 07/06/24 17:19 Chloride 105 mmol/L (98-107) 07/06/24 17:19 Carbon Dioxide 28 mmol/L (22-29) 07/06/24 17:19 Anion Gap 14.7 (5-19) 07/06/24 17:19 BUN 27 mg/dL (8-23) H 07/06/24 17:19 Creatinine 1.1 mg/dL (0.7-1.2) 07/06/24 17:19 GFR Calculation Not Reportable 07/06/24 17:19 Glucose 145 mg/dL (65-115) H 07/06/24 17:19 POC Glucose 137 mg/dL (70-110) H 07/06/24 17:09 Calculated Osmolality 304 mOsm/kg (285-295) H 07/06/24 17:19 Calcium 9.3 mg/dL (8.5-10.5) 07/06/24 17:19 Total Bilirubin 0.2 mg/dL (0.15-1.2) 07/06/24 17:19 AST 14 U/L (0-40) 07/06/24 17:19 ALT 9 U/L (0-41) 07/06/24 17:19 Alkaline Phosphatase 91 U/L (40-130) 07/06/24 17:19 Total Protein 6.9 g/dL (6.6-8.7) 07/06/24 17:19 Albumin 4.4 g/dL (3.5-5.2) 07/06/24 17:19 Globulin 2.5 g/dL (1.3-4.6) 07/06/24 17:19 Urine Color Yellow (Yellow) 07/06/24 17:51 Urine Appearance Cloudy (CLEAR) A 07/06/24 17:51 Urine pH 5.5 (5-7) 07/06/24 17:51 Ur Specific [place] 1.009 (1.005-1.030) 07/06/24 17:51 Urine Protein Negative (Negative) 07/06/24 17:51 Urine Glucose (UA) Negative (Normal) 07/06/24 17:51 Urine Ketones Negative (Negative) 07/06/24 17:51 Urine Blood Negative (Negative) 07/06/24 17:51 Urine Nitrate Negative (Negative) 07/06/24 17:51 Urine Bilirubin Negative (Negative) 07/06/24 17:51 Urine Urobilinogen 0.2 mg/dL (Negative) 07/06/24 17:51 Ur Leukocyte Esterase Negative (Negative) 07/06/24 17:51 Urine RBC 0-2 /hpf (0-2) 07/06/24 17:51 Urine WBC 0-5 /hpf (0-5) 07/06/24 17:51 Ur Squamous Epith Cells 0-5 /hpf (0-5) 07/06/24 17:51 Amorphous Sediment Not Reportable 07/06/24 17:51 Urine Bacteria None seen /hpf (NONE) 07/06/24 17:51 Hyaline Casts 0-4 /lpf H 07/06/24 17:51 All radiology interpretation(s) finalized by discharge EKG Data EKG 1: I personally reviewed and interpreted this EKG as follows: EKG interpretation date: 07/06/24 EKG interpretation time: 17:09 Interpretation: nsr hr [address] elevation qrs 89 qtc 384 Discharge Plan Discharge Patient Disposition: Home Clinical Impression: Paresthesia Condition: Stable Prescriptions: No Action triamcinolone acetonide 0.1 % lotion 1 applic topical BID Qty: 60 5RF triamcinolone acetonide 0.1 % ointment 1 applic topical BID losartan 25 mg tablet 25 mg PO BID amlodipine 5 mg tablet 5 mg PO latanoprost 0.005 % drops 1 drp ophthalmic (eye) multivitamin Tablet 1 tab PO DAILY metformin 500 mg Tablet 500 mg PO DAILY brimonidine 0.2 % Drops 1 drp OPHTHALMIC (EYE) BID Rx Instructions: both eyes pravastatin 20 mg Tablet 20 mg PO DAILY PreserVision AREDS-2 250-90-40-1 mg Capsule 1 tab PO BID Discharge Orders: Discharge ED (Routine); Ordered 07/06/24 Ordered By: Oneyda Brown Referrals: Ed Vergara MD [Primary Care Provider] - 4-7 days Discharge Diet: Advance as tolerated Discharge Activity: Resume usual activity Patient Instructions: Paresthesia (ED) Coding Level of Care Code ED Director Medical Affairs for Chg Fwd Related Data Home Medications Medication Instructions Recorded Confirmed brimonidine 0.2 % eye drops 1 drp ophthalmic (eye) BID 04/07/22 05/15/24 metformin 500 mg tablet 500 mg PO DAILY 04/07/22 05/15/24 multivitamin 1 tab PO DAILY 04/07/22 05/15/24 pravastatin 20 mg tablet 20 mg PO DAILY 04/07/22 05/15/24 vit C 250 mg-vit E 90 mg-zinc 40 1 tab PO BID 04/07/22 05/15/24 mg-copper 1 [id number] capsule (PreserVision AREDS-2) losartan 25 mg tablet 25 mg PO BID 04/09/22 05/15/24 amlodipine 5 mg tablet 5 mg PO 08/10/22 05/15/24 latanoprost 0.005 % eye drops 1 drp ophthalmic (eye) 08/10/22 05/15/24 triamcinolone acetonide 0.1 % 1 applic topical BID 09/21/23 05/15/24 topical ointment Previous Rx's Medication Instructions Recorded triamcinolone acetonide 0.1 % 1 applic topical BID #60 mL 01/19/23 lotion Allergies Allergy/AdvReac Type Severity Reaction Status Date / Time HORSE SERUM Allergy Unknown Uncoded 07/06/24 17:03 NIH stroke score NIHSS Level Of Consciousness - 1a: 0 Level Of Consciousness Questions - 1b: Both Correct Level Of Consciousness Commands - 1c: Both Correct Best Gaze - 2: Normal Visual Mallory - 3: No Visual Loss Facial Palsy - 4: Normal Motor Arm Right - 5: No Drift Motor Arm Left - 5: No Drift Motor Leg Right - 6: No Drift Motor Leg Left - 6: No Drift Limb Ataxia - 7: Absent Sensory - 8: Normal Best Language - 9: No Aphasia Dysarthia - 10: Normal Extinction And Inattention - 11: 0 Score Total Score: 0
[2024-07-06 17:26] LABS: Basophils % 0.3 %; Eosinophils # 0.1 10^3/uL (0.0-0.8); Eosinophils % 1.6 %; Hematocrit 39.2 % (37-53); Lymphocytes # 1.4 10^3/uL (0.8-4.8); Lymphocytes % 21.8 %; Mean Corpuscular HGB Conc 32.1 g/dL (30-55); Mean Corpuscular Hemoglobin 30.6 pg (27-33); Mean Corpuscular Volume 95.1 fl (82-101); Mean Platelet Volume 11.1 fL (7.4-10.4); Monocytes # 0.6 10^3/uL (0.2-0.9); Monocytes % 9.3 %; Neutrophils # 4.29 10^3/uL (1.8-7.7); Neutrophils % 66.7 %; Nucleated Red Blood Cells % 0 %; Platelet Count 218 10^3/cmm (157-399); Red Blood Count 4.12 10^6/uL (3.85-5.65); Red Cell Distribution Width 12.8 % (12.1-15.1); White Blood Count 6.43 10^3/uL (3.29-11.43)
[2024-07-06 17:44] LABS: Alanine Aminotransferase 9 U/L (0-41); Albumin Level 4.4 g/dL (3.5-5.2); Alkaline Phosphatase 91 U/L (40-130); Anion Gap 14.7 (5-19); Aspartate Amino Transferase 14 U/L (0-40); Blood Urea Nitrogen 27 mg/dL (8-23); Calcium 9.3 mg/dL (8.5-10.5); Carbon Dioxide 28 mmol/L (22-29); Chloride 105 mmol/L (98-107); Creatinine Clr Calc Pharmacy 34.2484; Globulin 2.5 g/dL (1.3-4.6); Glucose 145 mg/dL (65-115); Osmolality Calculated 304 mOsm/kg (285-295); Potassium 4.7 mmol/L (3.5-5.1); Sodium 143 mmol/L (136-145); Total Bilirubin 0.2 mg/dL (0.15-1.2); Total Protein 6.9 g/dL (6.6-8.7)
[2024-07-06 17:45] VITALS: BP 196/90; PULSE 106; O2SAT 94
[2024-07-06 18:03] LABS: Bilirubin Urine Negative (Negative); Blood Urine Negative (Negative); Glucose Urine UA Negative (Normal); Ketones Urine Negative (Negative); Leukocyte Esterase Urine Negative (Negative); Nitrate Urine Negative (Negative); Protein Urine Negative (Negative); Specific Gravity, Urine 1.009 (1.005-1.030); Urine Appearance Cloudy (CLEAR); Urine Color Yellow (Yellow); Urobilinogen Urine 0.2 mg/dL (Negative); pH Urine 5.5 (5-7)
[2024-07-06 18:05] LABS: Add Urine Microscopic? YES; Bacteria Urine None Seen /hpf; Hyaline Casts Urine 0-4 /lpf; RBC Urine 0-2 /hpf (0-2); Squamous Epithelial Cell Urine 0-5 /hpf (0-5); WBC Urine 0-5 /hpf (0-5)
[2024-07-06 18:17] VITALS: BP 178/86; PULSE 65; RESP 15; O2SAT 93
[2024-07-06 18:38] VITALS: BP 160/38; PULSE 62; RESP 18; O2SAT 94
== END 2024-07-06 18:39 | disposition home or self-care (01) ==
PROVIDERS: Emergency Provider Emergency Medicine; PCP Family Medicine
DX: R20.2 Paresthesia of skin (principal); Z79.84 Long term (current) use of oral hypoglycemic drugs; E11.9 Type 2 diabetes mellitus without complications; Z85.46 Personal history of malignant neoplasm of prostate
CPT/HCPCS: 36415; 36416; 70450; 71045; 80053; 81001; 82962; 85025; 93005; 99285

== ENCOUNTER 2024-07-17 06:00 | Outpatient (CLI) | payer MEDICARE, OTHER, SELFPAY | END 2024-07-17 06:01 | disposition home or self-care (01) | LOC: RAD 07-27 14:26 | PROVIDERS: PCP Family Medicine; Visit Provider Family Medicine | DX: L57.0 Actinic keratosis (principal); L82.0 Inflamed seborrheic keratosis; D36.11 Benign neoplasm of peripheral nerves and autonomic nervous system of face, head, and neck; D18.01 Hemangioma of skin and subcutaneous tissue; L81.4 Other melanin hyperpigmentation; Z85.828 Personal history of other malignant neoplasm of skin | CPT/HCPCS: 17000; 99213 ==

== ENCOUNTER 2024-07-28 08:24 | Outpatient (CLI) | payer MEDICARE, OTHER, SELFPAY ==
--- NOTE | 2024-07-28 08:27 | MR_ITS ---
WS: [id number] MRI HEAD WITHOUT CONTRAST TECHNIQUE: Sagittal T1, T2 axial, T2 axial FLAIR, axial and coronal T1 images, axial susceptibility w eighted imaging, axial diffusion weighted images, and coronal T2 images were obtained. CLINICAL INFORMATION: VISUAL CHANGES/PARESTHESIA/CT OF HEAD ABNORMAL COMPARISON: CT head 07/06/2024 FINDINGS: Previously described nodular foci along the RIGHT ventral racheal not well visualized on this study. Thi s extends along the undersurface of the RIGHT tentorium and along the RIGHT trigeminal nerve root ent ry zone on the prior CT. Additional focus of calcification along the ventral RIGHT medulla on the CT. This may represent small nerve sheath lesions such as meningiomas or schwannomas, again not evaluate d on this study due to size and slice thickness. No evidence of restricted diffusion to suggest acute ischemia. Ventricular system and basilar cistern s are patent. Advanced small vessel changes with moderate parenchymal volume loss. Normal posterior f phyllis. Normal vascular flow voids at the skull base. No extra-axial fluid collections. Mild mucosal thickening in the paranasal sinuses. No hemosiderin on the susceptibly weighted images. Normal optic chiasm and pituitary infundibulum. Moderate symmetric atrophy temporal lobes and hippoca mpal formations. MR/MR head wo con* [id number] IMPRESSION: 1. Small foci of calcification along the RIGHT ventral racheal and RIGHT medulla not well seen on this study due to slice thickness. This is better evaluated on the prior CT and considerations include calcified nerve sheath tumors such as small meningiomas or schwannomas. 2. No significant mass effect. No edema in the racheal or brainstem. 3. Moderate to advanced small vessel changes moderate parenchymal volume loss. 4. Moderate symmetric atrophy temporal lobes and hippocampal formations. 5. No other acute findings.
== END 2024-07-28 08:25 | disposition home or self-care (01) ==
LOC: RAD 08:24
PROVIDERS: PCP Family Medicine; Visit Provider Family Medicine
DX: G31.89 Other specified degenerative diseases of nervous system (principal); R20.2 Paresthesia of skin
CPT/HCPCS: 70551

== ENCOUNTER → 2024-08-24 11:05 | Outpatient (BNVA) | payer MEDICARE, OTHER, SELFPAY | PROVIDERS: PCP Family Medicine; Visit Provider Podiatrist Foot & Ankle Surgery | DX: L60.3 Nail dystrophy (principal); E11.42 Type 2 diabetes mellitus with diabetic polyneuropathy; M20.22 Hallux rigidus, left foot; Z79.84 Long term (current) use of oral hypoglycemic drugs | CPT/HCPCS: 11721; 99213 ==

== ENCOUNTER 2024-10-20 15:51 | Outpatient (CLI) | payer MEDICARE, OTHER, SELFPAY ==
--- NOTE | 2024-10-20 15:53 | USCV_ITS ---
Omar Ritter Age: 89 Gender: M : 1935 Exam Date: 10/20/2024 16:03 Ordering Phys: Ed Vergara MD Technologist: [facility] [place]am Location[place] [facility] [place]: unsteadiness Risk Factors: Previous Vascular Surgery: Right Brachial BP: / Left Brachial BP: / Right Left Velocity (cm/s) Spectral Plaque Velocity (cm/s) Spectral Plaque Syst/Diast Broadening Syst/Diast Broadening 65.50/ 14.10 Prox CCA 67.80 / 9.20 67.70/ 10.80 Mid CCA 68.70 / 13.00 56.70/ 6.40 Distal CCA 66.50 / 14.10 47.40/ 9.30 Prox ICA 47.50 / 11.70 72.50/ 17.60 Mid ICA 55.10 / 14.20 58.10/ 12.40 Distal ICA 56.10 / 15.40 49.90 ECA 67.50 0.80 ICA/CCA 0.70 Antegrade Vertebral Antegrade 26.40/ 4.60 cm/s 44.10/ 11.60 cm/s Tri Subclavian Bi 81.50 59.80 CONCLUSIONS Right ICA stenosis <50%. Mild atheromatous plaque right carotid bulb/ICA. Left ICA stenosis <50%. Mild atheromatous plaque left carotid bulb/ICA. Intimal thickening in the common carotid arteries and internal carotid arteries bilaterally. Normal antegrade Doppler flow noted in the right vertebral artery. Normal antegrade Doppler flow noted in the left vertebral artery. Anibal Vázquez MD (Electronically Signed) Final Date: 23 October 2024 12:39 S
== END 2024-10-20 15:52 | disposition home or self-care (01) ==
LOC: RAD 15:52
PROVIDERS: PCP Family Medicine; Visit Provider Family Medicine
DX: I65.23 Occlusion and stenosis of bilateral carotid arteries (principal); R26.81 Unsteadiness on feet; R20.2 Paresthesia of skin
CPT/HCPCS: 93880

== ENCOUNTER → 2024-11-22 14:00 | Outpatient (BNVA) | payer MEDICARE, OTHER, SELFPAY | PROVIDERS: PCP Family Medicine; Visit Provider Podiatrist Foot & Ankle Surgery | DX: E11.8 Type 2 diabetes mellitus with unspecified complications (principal); L60.3 Nail dystrophy; E11.42 Type 2 diabetes mellitus with diabetic polyneuropathy; M20.22 Hallux rigidus, left foot; Z79.84 Long term (current) use of oral hypoglycemic drugs | CPT/HCPCS: 11721 ==

== ENCOUNTER → 2024-12-19 08:40 | Outpatient (BNVA) | payer MEDICARE, OTHER, SELFPAY | PROVIDERS: PCP Family Medicine; Referring Provider Family Medicine; Visit Provider Specialist | DX: G45.9 Transient cerebral ischemic attack, unspecified (principal); G50.9 Disorder of trigeminal nerve, unspecified | CPT/HCPCS: 99204 ==

== ENCOUNTER → 2025-01-23 13:36 | Outpatient (BNVA) | payer MEDICARE, OTHER, SELFPAY | PROVIDERS: PCP Family Medicine; Visit Provider Nurse Practitioner Family | DX: L82.0 Inflamed seborrheic keratosis (principal); L72.0 Epidermal cyst; D36.11 Benign neoplasm of peripheral nerves and autonomic nervous system of face, head, and neck; D22.5 Melanocytic nevi of trunk; L81.4 Other melanin hyperpigmentation; Z08 Encounter for follow-up examination after completed treatment for malignant neoplasm; Z85.828 Personal history of other malignant neoplasm of skin; L57.0 Actinic keratosis | CPT/HCPCS: 17000; 99213 ==

== ENCOUNTER → 2025-03-20 09:49 | Outpatient (BNVA) | payer MEDICARE, OTHER, SELFPAY | PROVIDERS: PCP Family Medicine; Visit Provider Podiatrist Foot & Ankle Surgery | DX: E11.8 Type 2 diabetes mellitus with unspecified complications (principal); L60.3 Nail dystrophy; E11.42 Type 2 diabetes mellitus with diabetic polyneuropathy; M20.22 Hallux rigidus, left foot; Z79.84 Long term (current) use of oral hypoglycemic drugs | CPT/HCPCS: 11721 ==

== ENCOUNTER → 2025-06-28 08:55 | Outpatient (BNVA) | payer MEDICARE, OTHER, SELFPAY | PROVIDERS: PCP Family Medicine; Visit Provider Podiatrist Foot & Ankle Surgery | DX: E11.42 Type 2 diabetes mellitus with diabetic polyneuropathy (principal); L60.3 Nail dystrophy; E11.8 Type 2 diabetes mellitus with unspecified complications; M20.22 Hallux rigidus, left foot; Z79.84 Long term (current) use of oral hypoglycemic drugs | CPT/HCPCS: 11721 ==

== ENCOUNTER → 2025-07-13 13:21 | Outpatient (BNVA) | payer MEDICARE, OTHER, SELFPAY | PROVIDERS: PCP Family Medicine; Visit Provider Nurse Practitioner Family | DX: L81.4 Other melanin hyperpigmentation (principal); D36.11 Benign neoplasm of peripheral nerves and autonomic nervous system of face, head, and neck; L82.1 Other seborrheic keratosis; Z08 Encounter for follow-up examination after completed treatment for malignant neoplasm; Z85.828 Personal history of other malignant neoplasm of skin; D48.5 Neoplasm of uncertain behavior of skin; L57.0 Actinic keratosis | CPT/HCPCS: 11102; 17000; 99213 ==

== ENCOUNTER → 2025-08-31 11:12 | Outpatient (BNVA) | payer MEDICARE, OTHER, SELFPAY | PROVIDERS: PCP Family Medicine; Visit Provider Emergency Medicine | DX: J06.9 Acute upper respiratory infection, unspecified (principal) | CPT/HCPCS: 87426 ==

== ENCOUNTER → 2025-09-07 08:51 | Outpatient (BNVA) | payer MEDICARE, OTHER, SELFPAY | PROVIDERS: PCP Family Medicine; Visit Provider Dermatology | DX: L82.1 Other seborrheic keratosis (principal); Z08 Encounter for follow-up examination after completed treatment for malignant neoplasm; Z85.828 Personal history of other malignant neoplasm of skin; D03.62 Melanoma in situ of left upper limb, including shoulder | CPT/HCPCS: 11603; 13121; 99213 ==